=== PATIENT | female | born 1965 | race Caucasian/White ===

== ENCOUNTER 2017-03-28 20:06 | Emergency (ER) | payer OTHER ==
[~2017-03-28] VITALS: Ht 172.7 cm; Wt 93.8 kg
[~2017-03-28 20:06] MED LIST: Z.0.NO CURRENT MEDS
[2017-03-28 20:16] VITALS: BP 128/99; PULSE 96; RESP 19; TEMP 98.5; O2SAT 99
--- NOTE | 2017-03-28 22:45 | RADRPT ---
EXAM DATE/TIME: 03/28/2017 21:58 [facility] COMPARISON: No previous studies available for comparison. 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 MEDICAL HISTORY : None. SURGICAL HISTORY : None. ENCOUNTER: Initial ACUITY: 1 day PAIN SCORE: 10/10 LOCATION: Left hand. FINDINGS: Three view examination of the left hand demonstrates no soft tissue swelling, dislocation, or fractur e. The carpal bones appear intact. The interphalangeal and metacarpophalangeal joints are intact. Bony mineralization is normal. CONCLUSION: 1. No acute fracture identified. Norberto Lackey MD on March 28, 2017 at 22:40 Board Certified Radiologist. This report was verified electronically.
--- NOTE | 2017-03-28 22:45 | RADRPT ---
EXAM DATE/TIME: 03/28/2017 21:58 [facility] COMPARISON: No previous studies available for comparison. 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 MEDICAL HISTORY : None. SURGICAL HISTORY : None. ENCOUNTER: Initial ACUITY: 1 day PAIN SCORE: 10/10 LOCATION: Left distal wrist. FINDINGS: Three view examination of the left wrist demonstrates no soft tissue swelling, dislocation, or fractu re. The carpal bones are in normal alignment. The joint spaces are maintained. Bony mineralization is normal. CONCLUSION: 1. No acute fracture identified. Norberto Lackey MD on March 28, 2017 at 22:42 Board Certified Radiologist. This report was verified electronically.
[2017-03-28] MEDS ORDERED: IBUPROFEN 600 MG TAB PO ONE (23:00)
[2017-03-28] MEDS ORDERED: HYDR-3516 PO (23:05)
--- NOTE | 2017-03-28 23:05 | PD ---
HPI Chief Complaint: Musculoskeletal Complaint Time Seen by Provider: 21:38 Travel History International Travel<30 days: No Contact w/Intl Traveler<30days: No Traveled to known affect area: No History of Present Illness HPI 51-year-old female here for evaluation of left hand and wrist pain after a mechanical trip and fall. The patient fell backwards onto not stretched hand. She experienced immediate pain to the left wrist and hand which has been worsening. She took one of her friends hydrocodone pills while in the waiting room with moderate relief of pain. She denies any other injuries. No head trauma or LOC. No head neck or back pain. No pain in any other joint or extremity. Pain is constant, moderate, worse with movements, improved with rest. Patient is right-hand dominant. PFSH Past Medical History Cardiovascular Problems: Yes (HTN - controlled with med) Hypertension: Yes ?: Not Social History Alcohol Use: Yes (2 BEERS WEEKLY) Tobacco Use: No Substance Use: No Allergies-Medications (Allergen,Severity, Reaction): Coded Allergies: No Known Allergies (Verified Allergy, Mild, 03/28/17) Reported Meds & Prescriptions Reported Meds & Active Scripts Active Reported No Current Meds (Miscellaneous Medication) Misc Review of Systems Except as stated in HPI: all other systems reviewed are Neg Physical Exam Narrative GENERAL: Well-developed, well-nourished, comfortable, no apparent distress. SKIN: Focused skin assessment warm/dry. No lacerations, abrasions, or ecchymosis. HEAD: Atraumatic. Normocephalic. EYES: Pupils equal and round. No scleral icterus. No injection or drainage. ENT: No nasal bleeding or discharge. Mucous membranes pink and moist. NECK: Trachea midline. No JVD. CARDIOVASCULAR: Regular rate and rhythm. Bilateral distal radial pulses are brisk and equal. Normal capillary refill in the entire left hand. RESPIRATORY: No accessory muscle use. Clear to auscultation. Breath sounds equal bilaterally. GASTROINTESTINAL: Abdomen soft, non-tender, nondistended. Hepatic and splenic margins not palpable. MUSCULOSKELETAL: Left wrist with mild swelling over the distal/posterior radius with mild swelling in the proximal hand on the dorsal and volar aspect. There is limited range of motion left wrist secondary to pain. Normal range of flexion and extension in the left hand. Normal range of motion in the left elbow without obvious deformity. The rest of her joints and extremities are without deformity, without tenderness, with normal range of motion. All compartments in the left upper extremity are supple. Left upper extremity is neurovascularly intact. NEUROLOGICAL: Awake and alert. No obvious cranial nerve deficits. Motor grossly within normal limits. Normal speech. PSYCHIATRIC: Appropriate mood and affect; insight and judgment normal. Data Data Last Documented VS Vital Signs Date Time Temp Pulse Resp B/P (MAP) Pulse Ox O2 Delivery O2 Flow Rate FiO2 03/28/17 20:16 98.5 96 19 128/99 (109) 99 Orders Orders Hand, Complete ([id number]) (03/28/17 ) Wrist, Complete ([id number]) (03/28/17 ) Splint Or Brace Apply/Monitor (03/28/17 22:54) Sling Cradle Arm (03/28/17 ) Ibuprofen (Motrin) (03/28/17 23:00) MDM Medical Decision Making Medical Screen Exam Complete: Yes Emergency Medical Condition: Yes Differential Diagnosis Left hand/wrist fracture versus contusion versus sprain. Narrative Course Left hand x-ray read as no identifiable fracture. Left wrist x-ray read as no identifiable fracture. The patient was made aware of x-ray findings. Volar splint applied. Patient was also placed in a shoulder sling and was advised to remove her arm from the sling every 2 hours and range her left shoulder to prevent a frozen shoulder. She was advised to follow-up with her primary care physician as well as an orthopedist this week for repeat x-rays. She was informed on when to return to the emergency department. She verbalizes understanding and agreement with plan. Diagnosis Primary Impression: Left wrist injury Qualified Codes: S69.92XA - Unspecified injury of left wrist, hand and finger( s), initial encounter Referrals: Chuck Jacobs MD 1 week Orthopedist Primary Care Physician 3 days Additional Instructions: Follow-up with your primary care physician this week. Follow-up with orthopedist Dr. Jacobs this week. Take ibuprofen for pain. Return to the emergency department for worsening symptoms or any other concerns. Scripts Hydrocodone-Acetaminophen (Hydrocodone-Acetaminophen) 5-325 mg Tab 1 TAB PO Q6H Y for PAIN, #15 TAB 0 Refills Prov: Román Tomas MD 03/28/17 Disposition: 01 DISCHARGE HOME Condition: Stable Román Tomas MD Mar 28, 2017 23:05
== END 2017-03-28 23:14 | disposition home or self-care (01) ==
LOC: PHEFT 20:06
DX: S69.92XA Unspecified injury of left wrist, hand and finger(s), initial encounter (principal); I10 Essential (primary) hypertension; W01.0XXA Fall on same level from slipping, tripping and stumbling without subsequent striking against object, initial encounter; Y93.9 Activity, unspecified; Y92.9 Unspecified place or not applicable; Y99.9 Unspecified external cause status
CPT/HCPCS: 29125; 73110; 73130